=== PATIENT | male | born 1980 | race Caucasian/White ===

== ENCOUNTER 2017-01-11 22:03 | Emergency (ER) | payer BC ==
[2017-01-11] MEDS ORDERED: NO MEDICATIONS (22:33)
== END 2017-01-12 00:17 | disposition home or self-care (01) ==
LOC: SED 22:03
DX: M54.5 Low back pain (principal); G89.29 Other chronic pain; Z90.49 Acquired absence of other specified parts of digestive tract; Z98.890 Other specified postprocedural states
CPT/HCPCS: 99283